=== PATIENT | female | born 1990 | race Caucasian/White ===

== ENCOUNTER 2018-01-04 15:30 | Inpatient (IN) | payer OTHER ==
[~2018-01-04] VITALS: Ht 170.2 cm; Wt 2.3 kg
[2018-01-09] MEDS ORDERED: OBSTETRIX EC C1 EACH PO (15:23)
[2018-01-09] MEDS ORDERED: NASONEX17 GM IH (15:24)
[2018-01-26] MEDS ORDERED: ALAVERT10 M1 PO (07:00)
[2018-01-29] MEDS ORDERED: NAPROXEN500 MG PO (13:24)
[2018-01-29] MEDS ORDERED: CODE1TAB37 PO (13:24)
[2018-01-29] MEDS ORDERED: COLACE100 MG PO (13:24)
== END 2018-01-29 13:43 | DRG 766 ==
LOC: O/R 01-26 06:01 → OB/GYN 01-26 06:01 → LDR 01-26 06:01 → O/R 01-26 18:05 → OB/GYN 01-26 18:32
PROVIDERS: Obstetrics & Gynecology
PROC: 10907ZC Drainage of Amniotic Fluid, Therapeutic from Products of Conception, Via Natural or Artificial Opening (ICD-10-PCS; 2018-01-26)
PROC: 3E033VJ Introduction of Other Hormone into Peripheral Vein, Percutaneous Approach (ICD-10-PCS; 2018-01-26)
PROC: 4A1HXCZ Monitoring of Products of Conception, Cardiac Rate, External Approach (ICD-10-PCS; 2018-01-26)
PROC: 10D00Z1 Extraction of Products of Conception, Low, Open Approach (ICD-10-PCS; principal; 2018-01-26 17:15)
DX: O62.0 Primary inadequate contractions (principal); Z3A.38 38 weeks gestation of pregnancy; Z37.0 Single live birth

== ENCOUNTER 2018-01-09 14:01 | Inpatient (IN) | payer OTHER ==
[~2018-01-09] VITALS: Ht 170.2 cm; Wt 87.5 kg
[2018-01-09] MEDS ORDERED: OBSTETRIX EC C1 EACH PO (15:23)
[2018-01-09] MEDS ORDERED: NASONEX17 GM IH (15:24)
== END 2018-01-12 11:52 | disposition home or self-care (01) | DRG 392 ==
LOC: LDR 14:01 → OB/GYN 14:01
PROC: 4A1HXCZ Monitoring of Products of Conception, Cardiac Rate, External Approach (ICD-10-PCS; principal; 2018-01-09)
DX: K52.89 Other specified noninfective gastroenteritis and colitis (principal); E86.0 Dehydration